=== PATIENT | female | born 1950 | race Caucasian/White ===

== ENCOUNTER 2018-04-01 00:49 | Emergency (ER) | payer OTHER ==
[~2018-04-01] VITALS: Ht 154.9 cm; Wt 65.9 kg
[2018-04-01] MEDS ORDERED: LISI-538 (00:55)
[2018-04-01] MEDS ORDERED: LISI10TA4 (00:55)
[2018-04-01] MEDS ORDERED: PERCOCET 5MG/325MG TAB PO ONE (01:30)
[2018-04-01] MEDS ORDERED: OXYCODONE/APAP 5MG/325MG(BULK FOR ED) 1 TABLET PO ONE (02:15)
[2018-04-01 02:18] VITALS: BP 145/64
--- NOTE | 2018-04-01 08:32 | REP ---
LEFT FOREARM: Two views. HISTORY: Injury in a fall. FINDINGS: AP and lateral views of the left forearm demonstrate normal bones, joints, and soft tissues. No fracture or subluxation is seen. IMPRESSION: No fracture noted. Electronically Signed by Issa Deng MD 04/01/2018 04:57 P
--- NOTE | 2018-04-01 08:32 | REP ---
LEFT WRIST: Four views. HISTORY: Injury in a fall. FINDINGS: Four views of the left wrist demonstrate cortical disruption of the dorsal metaphysis of the distal radius consistent with a subtle distal radial fracture. There is soft tissue swelling over the carpus. Advanced osteoarthritis is seen at the first carpometacarpal articulation. IMPRESSION: Subtle distal radial metaphyseal fracture. Osteoarthritis at the first carpometacarpal articulation. Electronically Signed by Issa Deng MD 04/01/2018 04:57 P
== END 2018-04-01 02:19 | disposition home or self-care (01) ==
LOC: M ED 00:49
DX: S52.502A Unspecified fracture of the lower end of left radius, initial encounter for closed fracture (principal); M19.032 Primary osteoarthritis, left wrist; W00.9XXA Unspecified fall due to ice and snow, initial encounter; Y92.89 Other specified places as the place of occurrence of the external cause; Y93.9 Activity, unspecified; Y99.0 Civilian activity done for income or pay; I10 Essential (primary) hypertension; Z72.0 Tobacco use; Z79.899 Other long term (current) drug therapy

== ENCOUNTER → 2020-03-28 | Outpatient (CLI) | payer SELFPAY ==
[~2020-03-28] MED LIST: LISI-538; LISI10TA4
== END ==
LOC: M LABSMTC 13:34
PROVIDERS: ATTEND Pediatrics
DX: Z20.828 Contact with and (suspected) exposure to other viral communicable diseases (principal)